=== PATIENT | female | born 1990 | race Caucasian/White ===

== ENCOUNTER 2016-06-24 21:33 | Outpatient (CLI) | payer OTHER ==
[~2016-06-24] VITALS: Ht 154.9 cm; Wt 107.0 kg
[~2016-06-24 21:33] MED LIST: ACET50TA PO; LEVO150T7 PO; MACR100C3 PO; NYST100024 TOP; PERCOCET PO; VITAPRTA PO
[2016-06-24 21:53] VITALS: BP 123/64
--- NOTE | 2016-06-24 23:19 | HPE ---
DATE OF ADMISSION: 06/24/2016 This lady is a 25-year-old 4, para 1, abortio 2, last menstrual period (LMP) 12/09/2015, estimated date of delivery (EDC) 09/20/2016 at 27 and 3 weeks of gestation with history of 2 days of decreased, no movement. Risk factors is she is hypothyroid; her BMI is greater than 45. She is morbidly obese, has anti-TKA antibodies and has chronic yeast infections in the skin folds. Her past history is she had spontaneous vaginal delivery 18 months ago, 2014 with a delayed hemorrhage and lacerations which required general anesthetic in order to repair. She did not receive a blood transfusion at that time. She did have spontaneous delivery of live female infant 7 pounds 6 ounces. She has also had two spontaneous abortions. Labs are all negative, anti-TKA antibody, HIV negative. Hepatitis negative, RPR negative, rubella immune. Varicella immune. Pap normal. Initial 1-hour glucose was 132. In her past she was a GDM-1 where she had an elevated 1-hour and 3-hour. On examination no distress, symphysis fundus height is 28. She has chronic yeast infection in her skin folds, category one strip. No decelerations. Accelerations are noted. No loss of fluid. No vaginal bleeding. Blood pressure is 123/64, respirations 20, pulse 96, temperature 97.8. Urine is 10/10, pH 7, +1 leukocytes, negative for the rest. The patient was counseled regarding kick chart, premature rupture of membranes, bleeding and when to call the provider. She is at 27 weeks of gestation. She was discharged undelivered. She has an appointment next week with her provider.
== END 2016-06-24 23:00 | disposition home or self-care (01) ==
LOC: M LDO 21:33
PROVIDERS: ATTEND Obstetrics & Gynecology
DX: O36.8130 Decreased fetal movements, third trimester, not applicable or unspecified (principal); Z3A.27 27 weeks gestation of pregnancy

== ENCOUNTER 2016-09-13 06:17 | Inpatient (IN) | payer OTHER ==
[2016-09-13] VITALS (14 sets, daily range): BP systolic 94–141; BP diastolic 46–93
[~2016-09-13] VITALS: Ht 154.9 cm; Wt 106.0 kg
[~2016-09-13 06:17] MED LIST changes: +LEVOTHYROXINE 0.112 MG TAB (112 MCG) PO SCH
[2016-09-13] MEDS ORDERED: LACTATED RINGER'S 1000 ML IV STA (06:32)
[2016-09-13] MEDS ORDERED: GLYB125TA PO (06:43)
[2016-09-13 07:18] LABS: MEAN CORPUSCULAR HEMOGLOBIN 25.7 pg (27.0-33.0); MEAN CORPUSCULAR HGB CONC 31.1 g/dl (32.0-36.5); MEAN CORPUSCULAR VOLUME 82.7 fl (80.0-96.0); RED CELL DISTRIBUTION WIDTH 17.7 % (11.5-14.5); WHITE BLOOD COUNT 11.4 K/mm3 (4.0-10.0)
[2016-09-13] MEDS: LR 1,000 ML IV SCH ×2 (08:04→17:01)
[2016-09-13] MEDS ORDERED: miSOPROStol 50 MCG 1/2 TAB (S0191) PV ONE ×2 (08:30→12:45)
[2016-09-13] MEDS ORDERED: OXYTOCIN DRIP 30 UNITS in APPROPRIATE DILUENT 1 EA IV SCH ×2 (16:45→23:22)
[2016-09-13] MEDS ORDERED: FENTANYL 2MCG/ML ROPIVACAINE 0.2% IN 0.9% NACL 200ML IVBAG As Ordered ONE (19:58)
[2016-09-13] MEDS ORDERED: NALOXONE INJ 0.4 MG/1 ML VIAL (J2310) IV PRN (21:45)
[2016-09-13] MEDS ORDERED: ePHEDrine SULFATE 25 MG/5 ML(5MG/ML) SYRINGE IV PRN (21:45)
[2016-09-13] MEDS ORDERED: EPIDURAL/PCA KEYS XX PRN (21:45)
[2016-09-13] MEDS ORDERED: EPIDURAL COMMENT XX SCH (21:45)
[2016-09-13] MEDS ORDERED: LACTATED RINGER'S 1000 ML IV PRN (21:45)
[2016-09-13] MEDS ORDERED: REFRIGERATOR IV KEYS XX PRN (21:45)
[2016-09-13] MEDS ORDERED: ONDANSETRON 4MG/2ML VIAL (J2405) IV PRN ×2 (21:45→23:30)
[2016-09-13] MEDS ORDERED: FENTANYL/ROPIVACAINE/NACL BAG 200 ML EPIDURAL SCH (21:45)
[2016-09-13] MEDS ORDERED: diphenhydrAMINE INJ 50MG/ML VIAL (J1200) IV PRN (21:45)
[2016-09-13] MEDS ORDERED: PROMETHAZINE 25 MG TAB PO PRN (23:30)
[2016-09-13] MEDS ORDERED: MEASLES,MUMPS,RUBELLA VACCINE INJ (MMR-II) (90707) SC SCH (23:30)
[2016-09-13] MEDS ORDERED: RHOGAM 300 MCG (1500 IU) INJ (J2790) IM SCH (23:30)
[2016-09-13] MEDS ORDERED: DIBUCAINE 1% OINTMENT 30GM TOP PRN (23:30)
[2016-09-13] MEDS ORDERED: METHYLERGONOVINE MALEATE 0.2 MG/ML VIAL (J2210) IM PRN (23:30)
[2016-09-13] MEDS ORDERED: PHYTONADIONE 1 MG/0.5 ML SYRINGE (J3430) As Ordered ONE (23:51)
[2016-09-13] MEDS ORDERED: HEPATITIS B VAC *BIRTH DOSE ONLY*(ENGERIX) 10 MCG/0.5 ML SYRINGE As Ordered ONE (23:51)
[2016-09-13] MEDS ORDERED: ERYTHROMYCIN OPHTH OINT As Ordered ONE (23:51)
[2016-09-14] MEDS: IBUPROFEN 800 MG TAB PO PRN ×2 (02:10→20:18)
[2016-09-14 02:30] VITALS: BP 132/63
[2016-09-14 06:47] VITALS: BP 133/60
[2016-09-14] MEDS: ACETAMINOPHEN 500 MG TAB PO PRN ×2 (06:56→17:20)
[2016-09-14] MEDS: DOCUSATE SODIUM 100 MG CAP PO SCH ×2 (07:55→20:44)
[2016-09-14] MEDS ORDERED: PRENATAL VITAMIN TAB PO SCH (09:00)
[2016-09-14 18:48] VITALS: BP 119/55
[2016-09-15 05:59] VITALS: BP 114/56
[2016-09-15] MEDS: DOCUSATE SODIUM 100 MG CAP PO SCH (10:20)
[2016-09-15] MEDS: IBUPROFEN 800 MG TAB PO PRN (10:20)
[2016-09-15] MEDS ORDERED: COLA100C3 PO (11:12)
[2016-09-15] MEDS ORDERED: IBUP-1114 PO (11:14)
[2016-09-15] MEDS ORDERED: DIBU1OIN TOP (11:14)
[2016-09-15] MEDS ORDERED: PRENTAB9 PO (11:14)
[2016-09-15] MEDS ORDERED: ACET50TA PO (11:14)
== END 2016-09-15 13:40 | disposition home or self-care (01) | DRG 775 ==
LOC: M LDI 06:17 → M OBS 09-14 01:22
PROVIDERS: ADMIT Advanced Practice Midwife; ATTEND Advanced Practice Midwife
PROC: 10E0XZZ Delivery of Products of Conception, External Approach (ICD-10-PCS; principal; 2016-09-13)
PROC: 0HQ9XZZ Repair Perineum Skin, External Approach (ICD-10-PCS; 2016-09-13)
PROC: 3E0P7GC Introduction of Other Therapeutic Substance into Female Reproductive, Via Natural or Artificial Opening (ICD-10-PCS; 2016-09-13)
DX: O24.429 Gestational diabetes mellitus in childbirth, unspecified control (principal); Z68.42 Body mass index [BMI] 45.0-49.9, adult; Z37.0 Single live birth; Z3A.39 39 weeks gestation of pregnancy; O70.0 First degree perineal laceration during delivery; E03.9 Hypothyroidism, unspecified; O99.284 Endocrine, nutritional and metabolic diseases complicating childbirth; E66.9 Obesity, unspecified; B37.2 Candidiasis of skin and nail; O99.214 Obesity complicating childbirth

== ENCOUNTER → 2017-02-16 | Outpatient (CLI) | payer OTHER ==
[~2017-02-16] MED LIST changes: +COLA100C5 PO; +DIBU1OIN TOP; +GLYB125TA PO; +IBUP-1114 PO; -LEVOTHYROXINE 0.112 MG TAB (112 MCG) PO SCH; -MACR100C3 PO; +MACR100C43 PO; -NYST100024 TOP; +NYST1POW9 TOP; +PRENTAB9 PO
[2017-02-16 12:11] LABS: ANION GAP 11 MEQ/L (8-16); BLOOD UREA NITROGEN 12 MG/DL (7-18); CALCIUM LEVEL 9.2 MG/DL (8.5-10.1); CARBON DIOXIDE LEVEL 26 MEQ/L (21-32); CHLORIDE LEVEL 107 MEQ/L (98-107); CREATININE FOR GFR 0.83 MG/DL (0.55-1.02); FREE T4 0.98 NG/DL (0.76-1.46); GLOMERULAR FILTRATION RATE > 60.0 (>60); GLUCOSE, FASTING 80 MG/DL (70-105); POTASSIUM SERUM 4.3 MEQ/L (3.5-5.1); SODIUM LEVEL 144 MEQ/L (136-145)
== END ==
LOC: M LRY 09:33
PROVIDERS: ATTEND Physician Assistant
DX: E03.9 Hypothyroidism, unspecified (principal)

== ENCOUNTER → 2017-03-18 | Outpatient (CLI) | payer OTHER ==
--- NOTE | 2017-03-18 12:01 | REP ---
MRI LUMBAR SPINE WITHOUT CONTRAST: HISTORY: Back pain. Decreased signal intensity on T2-weighted images is present in the L4-5 and L5-S1 intervertebral discs. The discs are decreased in height. These findings are consistent with disc degeneration. There is no disc bulge or herniation at the L1-2 through L3-4 levels. The nerves exit the neural foramina without compression. A subchondral cyst is present in the right L4 superior facet. A diffuse disc bugle and small central disc extrusion are present at the L4-5 level. There is inferior migration of disc material. There is minimal compression of the thecal sac. The L4 nerves exit the neural foramina without compression. A diffuse disc bugle and small left paracentral disc extrusion are present at the L5-S1 level. There is minimal compression of the thecal sac and left S1 nerve as it exits the thecal sac. The L5 nerves exit the neural foramina without compression. The conus medullaris is normal in appearance terminating at the level of the L2 vertebral body. Increased signal intensity on T2-weighted images is present in the end plates of the L4 and 5 vertebral bodies. This represents degenerative change. IMPRESSION: 1. Diffuse disc bulge and small central disc extrusion at the L4-5 level with minimal thecal sac compression. 2. Diffuse disc bulge and small left paracentral disc extrusion at the L5-S1 level with minimal compression of the thecal sac and left S1 nerve as it exits the thecal sac. Signed by Sarath Denson MD 03/18/2017 12:08 P
== END ==
LOC: M RAD 10:25
PROVIDERS: ATTEND Physician Assistant
DX: M54.5 Low back pain (principal)

== ENCOUNTER → 2017-08-05 | Outpatient (CLI) | payer OTHER ==
[2017-08-05 12:44] LABS: ALBUMIN 3.5 GM/DL (3.2-5.2); ALBUMIN/GLOBULIN RATIO 0.97 (1.00-1.93); ALKALINE PHOSPHATASE 119 U/L (45-117); ALT/SGPT 18 U/L (12-78); ANION GAP 7 MEQ/L (8-16); AST/SGOT 11 U/L (7-37); BILIRUBIN,TOTAL 0.5 MG/DL (0.2-1.0); BLOOD UREA NITROGEN 12 MG/DL (7-18); CALCIUM LEVEL 8.3 MG/DL (8.5-10.1); CARBON DIOXIDE LEVEL 28 MEQ/L (21-32); CHLORIDE LEVEL 106 MEQ/L (98-107); CHOLESTEROL LEVEL 157 MG/DL (<200); CHOLESTEROL RISK RATIO 3.568 (<5); CREATININE FOR GFR 0.68 MG/DL (0.55-1.30); FREE T4 1.25 NG/DL (0.76-1.46); GLOMERULAR FILTRATION RATE > 60.0 (>60); GLUCOSE, FASTING 72 MG/DL (70-100); HDL CHOLESTEROL 44 MG/DL (>40); LDL CHOLESTEROL 96.4 MG/DL (<100); NON-HDL-C 113 MG/DL; POTASSIUM SERUM 4.5 MEQ/L (3.5-5.1); SODIUM LEVEL 141 MEQ/L (136-145); THYROID STIMULATING HORMONE 0.287 uIU/ML (0.358-3.740); TOTAL PROTEIN 7.1 GM/DL (6.4-8.2); TRIGLYCERIDES LEVEL 83 MG/DL (<150)
== END ==
LOC: M LRY 10:08
DX: E03.9 Hypothyroidism, unspecified (principal)
CPT/HCPCS: 84443

== ENCOUNTER → 2017-10-24 | Outpatient (CLI) | payer OTHER ==
[2017-10-24 21:25] LABS: CONTROL LINE HCG INT CTR LINE PRESENT; HCG, SERUM QUALITATIVE NEGATIVE (NEGATIVE)
== END ==
LOC: M LRY 16:04
DX: N91.2 Amenorrhea, unspecified (principal)
CPT/HCPCS: 84703

== ENCOUNTER → 2018-01-16 | Outpatient (CLI) | payer OTHER ==
[2018-01-16 18:15] LABS: FREE T4 1.06 NG/DL (0.76-1.46)
== END ==
LOC: M LRY 12:17
DX: E03.9 Hypothyroidism, unspecified (principal)
CPT/HCPCS: 84443